=== PATIENT | female | born 1960 ===

== ENCOUNTER 2016-09-25 12:23 | Emergency (ER) | payer BC ==
--- NOTE | 2016-09-25 13:01 | UC ---
Ear Complaint HPI - HPI Summary HPI Summary: right ear pain began last night - History of Current Complaint Chief Complaint: UCEar Stated Complaint: EAR PAIN Time Seen by Provider: 09/25/16 12:55 Hx Obtained From: Patient ?: No Onset/Duration: Sudden Onset, Lasting Days - 1 Severity Initially: Moderate Severity Currently: Moderate Pain Intensity: 8 Pain Scale Used: 0-10 Numeric Aggravating Factors: Nothing Alleviating Factors: Nothing - Allergies/Home Medications Allergies/Adverse Reactions: Allergies Allergy/AdvReac Type Severity Reaction Status Date / Time Adhesive Tape Allergy Rash Verified 09/25/16 13:02 Erythromycin Allergy Vomiting Verified 09/25/16 13:02 Latex Allergy Rash Verified 09/25/16 13:02 metal seuture Allergy Unknown Uncoded 09/25/16 13:02 Reaction Details Home Medications: Home Medications Calcium 500 mg PO 09/25/16 [History] Insulin Aspart [Novolog] 100 unit SC 09/25/16 [History] Losartan TAB* [Cozaar TAB*] 75 mg PO DAILY 09/25/16 [History Confirmed 09/25/16] Vinton-3 Fatty Acids [Fish Oil] 1,000 mg PO 09/25/16 [History] PHENobarbital TAB(*) 30 mg PO BEDTIME 09/25/16 [History Confirmed 09/25/16] Vitamin B Complex TAB* [Complex B-100*] 1 tab PO DAILY 09/25/16 [History Confirmed 09/25/16] PMH/Surg Hx/FS Hx/Imm Hx Previously Healthy: No Endocrine History: Diabetes, Dyslipidemia Cardiovascular History: Hypertension Neurological History: CVA, Other Other Neurological History: vp ad products and planning shunt - Family History Known Family History: Positive: None Family History: no reported cardiovascular issues - Social History Occupation: Disabled Lives: With Family Alcohol Use: Rare Alcohol Amount: 4 times a year Substance Use Type: None Smoking Status (MU): Never Smoked Tobacco Review of Systems Constitutional: Negative Skin: Negative Eyes: Negative ENT: Ear Ache - right ear pain Respiratory: Negative Cardiovascular: Negative Gastrointestinal: Negative, Abdominal Pain Genitourinary: Negative Motor: Negative Neurovascular: Negative Musculoskeletal: Negative Neurological: Negative Psychological: Negative All Other Systems Reviewed And Are Negative: Yes Physical Exam Triage Information Reviewed: Yes Appearance: Well-Appearing, No Pain Distress, Well-Nourished Vital Signs Reviewed: Yes Eye Exam: Normal Eyes: Positive: Conjunctiva Clear ENT Exam: Normal ENT: Positive: Normal ENT inspection, Hearing grossly normal, Pharynx normal, TMs normal - right ear with cerumen ,left normal. Negative: Nasal congestion, Nasal drainage, Tonsillar swelling, Tonsillar exudate, Trismus, Muffled/hoarse voice Dental Exam: Normal Neck exam: Normal Neck: Positive: Supple, Nontender Respiratory Exam: Normal Respiratory: Positive: Chest non-tender, No respiratory distress, No accessory muscle use Cardiovascular Exam: Normal Cardiovascular: Positive: RRR, Pulses Normal, Brisk Capillary Refill Abdominal Exam: Normal Musculoskeletal Exam: Normal Musculoskeletal: Positive: Strength Intact, ROM Intact, No Edema Neurological Exam: Normal Neurological: Positive: Alert, Muscle Tone Normal Psychological Exam: Normal Psychological: Positive: Normal Response To Family Skin Exam: Normal Re-Evaluation - Re-Evaluation First Eval Change: Improved - cerumen flush completed with good retun much of the pain has resolved some continued pain with movement of her ear Ear Complaint Course/Dx - Course Course Of Treatment: tylenol, ciprodex drops follow with pcp - Differential Dx/Diagnosis Differential Diagnosis/HQI/PQRI: Cerumen Impaction, Otitis Externa, Otitis Media , Trigeminal Nueralgia, URI Provider Diagnoses: Cerumen impaction right ear, otitis externa right ear Discharge - Discharge Plan Condition: Stable Disposition: HOME Prescriptions: Ciproflox/Dexameth OTIC.SUSP* [Ciprodex Otic*] 4 drop .SEE ORDER BID #1 bottle Patient Education Materials: Cerumen Impaction (ED), Hypertension (ED) Referrals: No Primary Care Phys,NOPCP [Primary Care Provider] - Additional Instructions: Follow with your primary care doctor
[2016-09-25] MEDS ORDERED: Acetaminophen TAB* 325 MG PO ONE (13:51)
== END 2016-09-25 14:04 | disposition home or self-care (01) ==
LOC: UCEAST 12:23
DX: H61.21 Impacted cerumen, right ear (principal); H60.91 Unspecified otitis externa, right ear; E11.9 Type 2 diabetes mellitus without complications; Z79.4 Long term (current) use of insulin; E78.5 Hyperlipidemia, unspecified; I10 Essential (primary) hypertension; Z86.73 Personal history of transient ischemic attack (TIA), and cerebral infarction without residual deficits; Z88.1 Allergy status to other antibiotic agents; Z91.040 Latex allergy status; Z91.048 Other nonmedicinal substance allergy status
CPT/HCPCS: 99203; A9270-GY; G0463

== ENCOUNTER 2019-01-11 18:27 | Emergency (ER) | payer BC ==
[2019-01-11 18:42] VITALS: BP 136/67
--- NOTE | 2019-01-11 19:19 | UC ---
Ear Complaint HPI - HPI Summary HPI Summary: 58 yo woman, insulin dependent diabetic x 52 years, with 2 day history of facial swelling associated with increased facial and occipital pain. Initially pain controlled with use of ibuprofen, but she changed to acetaminophen with less pain control due to cncern about her renal function. She does not know her creatinine or eGFR. She has not had fevers, but does feel achey, and denies any dental pain, heat or cold sensitivity. Currently in [place] due to of her mother last week, visiting from [place]. - History of Current Complaint Chief Complaint: UCRespiratory Stated Complaint: NECK PAIN, SWELLING Time Seen by Provider: 01/11/19 19:08 Hx Obtained From: Patient Onset/Duration: Gradual Onset, Lasting Days - 2 Severity Initially: Mild Severity Currently: Moderate Pain Intensity: 7 Aggravating Factors: Nothing Alleviating Factors: OTC Meds Associated Signs/Symptoms: Positive: Swelling @ - left jaw and left darrel- orbital area. - Allergies/Home Medications Allergies/Adverse Reactions: Allergies Allergy/AdvReac Type Severity Reaction Status Date / Time Adhesive Tape Allergy Rash Verified 01/11/19 18:42 MS Erythromycin Allergy Vomiting Verified 01/11/19 18:42 [Erythromycin] MS Latex [Latex] Allergy Rash Verified 01/11/19 18:42 metal seuture Allergy Unknown Uncoded 01/11/19 18:42 Reaction Details Home Medications: Home Medications Acetaminophen [Tylenol] 650 mg PO Q6HR 01/11/19 [History Confirmed 01/11/19] Levetiracetam XR TAB(NF) [Keppra XR TAB(NF)] 2,500 mg PO DAILY 01/11/19 [ History Confirmed 01/11/19] PMH/Surg Hx/FS Hx/Imm Hx Endocrine History: Diabetes Cardiovascular History: Hypertension Neurological History: CVA, Seizures - Surgical History Surgical History: Yes Surgery Procedure, Year, and Place: shunt, - Family History Known Family History: Positive: Other - mother age 90 post MVA, developed pneumonia Family History: no reported cardiovascular issues - Social History Occupation: Disabled Lives: With Family Alcohol Use: Rare Alcohol Amount: 4 times a year Substance Use Type: None Smoking Status (MU): Former Smoker Review of Systems All Other Systems Reviewed And Are Negative: Yes Constitutional: Positive: Chills, Other - Blood sugars have been in normal range , in the mid 100's range aside from a low today. Skin: Positive: Negative Eyes: Negative: Blurred Vision, Diplopia, Drainage, Eye Redness, Photophobia ENT: Positive: Ear Ache. Negative: Dental Pain, Sore Throat, Sinus Congestion, Sinus Pain/Tenderness Respiratory: Positive: Negative. Negative: Cough Cardiovascular: Positive: Negative. Negative: Chest Pain Genitourinary: Positive: Negative Motor: Positive: Negative Neurovascular: Positive: Negative Musculoskeletal: Positive: Negative Neurological: Positive: Headache - posterior occipital pain Psychological: Positive: Anxious Is Patient Immunocompromised?: No Physical Exam Triage Information Reviewed: Yes Appearance: Ill-Appearing, Pain Distress - moderate to severe; she is repeated pacing the room and finds it difficult to sit still for exam. Vital Signs: Initial Vital Signs Temp 98.3 F 01/11/19 18:36 Pulse 92 01/11/19 18:36 Resp 18 01/11/19 18:36 BP 136/67 01/11/19 18:36 Pulse Ox 99 01/11/19 18:36 Eye Exam: Other - Upper and lower lid swelling, mild, on right side. Eyes: Positive: Conjunctiva Clear, Other: - Normal EOM, no photophobia. Cannot see fundi well. ENT: Positive: Pharynx normal, TMs normal - obscured partly by wax. No canal erythema, drainage or swelling., Other - facial swelling with diffuse enlargement at the angle of the jaw Dental Exam: Normal Dental: Negative: Percussion Tenderness @, Gross Decay/Caries @, Dental Fracture @, Cervical Lymphadenopathy Neck: Positive: Supple, No Lymphadenopathy, Tenderness @ - diffuse swelling and erythema of the right cheek extending to the jaw, no warmth. Mildly indurated, without a distinct palpable nodule. Respiratory: Positive: Lungs clear, Normal breath sounds, No respiratory distress Cardiovascular: Positive: RRR, No Murmur, Pulses Normal. Negative: Tachycardia Abdomen Description: Positive: Nontender, No Organomegaly, Soft Musculoskeletal Exam: Normal Neurological Exam: Other - cane assisted gait with mild right sided weakness. Neurological: Positive: Alert Psychological Exam: Other - mildly anxious Skin Exam: Normal Ear Complaint Course/Dx - Course Course Of Treatment: Discussed concerns with patient and her spouse: diabetic with facial swelling consistent with parotitis and cellulitis, dental source also possible. Although not septic in appearance, she is restless due to pain and has a past medical history which could make her vulnerable to progressive infection. She and her spouse did not want to go to the emergency room. Differential diagnosed (parotitis, darrel-orbitla celluliits) with risk of orbital cellulitis,. and decision made to treaty eith im rocephin. If fever develops, pain or swelling worsen, they will proceed to the emergency room immediately for further work up and evaluation. Reviewed USER EXPERIENCE ARCHITECT: has had no recent tx of narcotics --reviewed [place] record # [id number] search number on [facility] - Differential Dx/Diagnosis Differential Diagnosis/HQI/PQRI: Cellulitis, Otitis Externa, Other - parotitis, orbital cellulitis. Provider Diagnosis: Parotitis, acute, Cellulitis and abscess of face Discharge ED - Sign-Out/Discharge Documenting (check all that apply): Patient Departure All imaging exams completed and their final reports reviewed: No Studies - Discharge Plan Condition: Stable Disposition: HOME Prescriptions: Cephalexin CAP* [Keflex 500 CAP*] 500 mg PO TID #21 cap Hydrocodone/Acetaminophen [Hydrocodone/Acetaminophen 5-325 mg] 2 tab PO Q6H PRN #12 tab MDD 6 PRN Reason: Pain - Moderate Patient Education Materials: Cellulitis (ED) Referrals: No Primary Care Phys,NOPCP [Primary Care Provider] - Additional Instructions: You have received 1 gram of rocephin this evening. Please begin use of cephalexin tomorrow at noon, and take 2 doses tomorrow. Facial swelling and pain should be decreasing by Monday, and if you have any increase in fever, pain or swelling, please go to the emergency room as discussed. Use hydrocodone as needed for pain control. You can use additional aceteminphen , but the maximum daily dose of acetaminophen is 4000mg. Each tablet of hydrocodone has 325mg. Warm moist compresses to the right jaw might help to relieve the pain and swelling. - Billing Disposition and Condition Condition: STABLE Disposition: Home
[2019-01-11] MEDS ORDERED: HYDROcodone/ACETAMIN 5-325 MG* 1 TAB PO ONE (19:35)
[2019-01-11] MEDS ORDERED: cefTRIAXone VIAL(*) 1,000 MG VIAL IM ONE (19:35)
[2019-01-11] MEDS ORDERED: Lidocaine 1% INJ* 10 MG/ML 30 ML SDV INJ ONE (19:36)
[2019-01-11] MEDS ORDERED: Lidocaine 1% MPF ** 5 ML VIAL IM ONE (19:46)
== END 2019-01-11 20:30 | disposition home or self-care (01) ==
LOC: UCEAST 18:27
DX: K11.21 Acute sialoadenitis (principal); L03.211 Cellulitis of face; L02.01 Cutaneous abscess of face; G40.909 Epilepsy, unspecified, not intractable, without status epilepticus; I10 Essential (primary) hypertension; E11.9 Type 2 diabetes mellitus without complications; Z88.1 Allergy status to other antibiotic agents; Z91.040 Latex allergy status; Z91.09 Other allergy status, other than to drugs and biological substances; Z79.899 Other long term (current) drug therapy; Z79.4 Long term (current) use of insulin; Z87.891 Personal history of nicotine dependence
CPT/HCPCS: 96372; 99212; G0463; J0696